=== PATIENT | female | born 1980 | race Caucasian/White ===

== ENCOUNTER → 2018-11-10 12:47 | Outpatient (CLI) | payer MEDICAID, SELFPAY ==
[2018-11-10 12:02] VITALS: BMI 32.5
[2018-11-10 13:31] LABS: Absolute Lymphocyte Count 1.55 X10^3/ul (0.83-4.51); Absolute Neutrophil Count 6.3 X10^3/uL (2.0-7.7); Basophil# 0.01 X10^3/uL; Basophil% 0.1 % (0-1); Eosinophil# 0.09 X10^3/uL; Eosinophils% 1.1 % (0-5); Hematocrit 37.5 % (37-47); Hemoglobin 12.7 g/dl (12.0-15.0); Lymphocyte # 1.55 X10^3/ul (4.0); Lymphocyte % 18.4 % (19-41); Mean Corp Hgb Conc 33.9 g/gl (32-36); Mean Corpuscular Hgb 30.5 pg (27.0-32.0); Mean Corpuscular Volume 89.9 fL (81-99); Mean Platelet Vol. 10.7 fl (6.2-12.0); Monocyte# 0.51 X10^3/uL; Monocyte% 6.1 % (0-10); Neutrophil # 6.25 X10^3/uL (2.7-7.7); Neutrophil % 74.2 % (47-70); Platelet Count 204 K/mm3 (150-450); RBC Distribution Width CV 12.6 % (11.6-14.6); RBC Distribution Width SD 40.5 fl (35.1-43.9); Red Blood Count 4.17 M/mm3 (4.2-5.4); White Blood Count 8.4 K/mm3 (4.4-11.0)
[2018-11-10 13:34] LABS: POSITIVE COUNT NO; POSITIVE DIFFERENTIAL NO; POSITIVE MORPHOLOGY NO
[2018-11-10 14:49] LABS: HIV - WCH Non-Reactive (Nonreactive); Rubella IgG 16.4 IU/mL
[2018-11-10 16:19] LABS: Chlamydia Trachomatis by PCR Negative (Negative); Neisserai gonorrhoeae by PCR Negative (Negative); Probe Check PASS; Sample Adequacy Control PASS; Specimen Processing Control PASS
[2018-11-11 11:01] LABS: HEPATITIS B SURFACE AG Negative (Negative)
[2018-11-13 03:31] LABS: Rapid Plasmin Reagin (RPR) NONREACTIVE (NONREACTIVE)
== END ==
PROVIDERS: Referring Provider Obstetrics & Gynecology; Visit Provider Obstetrics & Gynecology
DX: Z34.81 Encounter for supervision of other normal pregnancy, first trimester (principal)
CPT/HCPCS: 36415; 85025; 86592; 86703; 86762; 86850; 86900; 87086; 87088; 87340; 87491; 87591

== ENCOUNTER → 2018-12-30 11:28 | Outpatient (CLI) | payer MEDICAID, SELFPAY ==
[2018-12-09 11:48] VITALS: BMI 32.5
--- NOTE | 2018-12-30 11:32 | US_ITS ---
STUDY: SECOND AND THIRD TRIMESTER OBSTETRICAL ULTRASOUND REASON FOR EXAM: Female, 38 years old. Evaluate anatomy. LMP: Unknown. Estimated due date May 13, 2019 is provided. TECHNIQUE: Transabdominal TECHNICAL QUALITY: Adequate. PRIOR ULTRASOUND: None. FINDINGS: There is a single intrauterine fetus. The fetus is in an transverse lie with the head on the maternal left side. There is demonstrated cardiac activity with a heart rate of 149 bpm. There is a normal amniotic fluid volume. The largest amniotic fluid pocket measures 6.0 x 4.7 cm. A small septated fluid pocket is seen at the uterine fundus. The placenta is anterior in location and is not low lying. There are Grade 1 placental changes. The cervix measures 5.1 cm in length and is closed. The bilateral adnexal regions are normal. Incidental note of moderately defined, heterogeneous 6.3 x 6.5 x 4.0 cm soft tissue echogenicity consistent with a fibroid in the posterior lower uterine segment. BIOMETRY: BPD: 4.9 cm: 20 weeks, 6 days HC: 18.38 cm: 20 weeks, 6 days AC: 15.78 cm: 21 weeks, 0 days FL: 3.31 cm: 20 weeks, 6 days CI: 81% FL/BPD: 60% FL/AC: 21% HC/AC: 1.16 age by current US: 20 weeks, 6 days. CARLOS by current US: May 13, 2019. Estimated weight: 370 grams, +/- 84 grams, 35 %. Age by given CARLOS: 20 weeks, 6 days. Given CARLOS: May 13, 2019. ANATOMY: Gender: Female Cranium: Normal lateral ventricles. Normal choroid plexus. Normal cerebellum. Normal cisterna magna. Normal face, nose and lips. Chest: Normal 4-chamber heart. Abdomen/Pelvis: Normal diaphragm. Normal stomach. Normal abdominal wall. Normal cord insertion. Normal 3 vessel cord. Normal kidneys. Normal bladder. Spine: Normal cervical spine. Normal thoracic spine. Normal lumbar spine. Normal sacrum. Extremities: Normal bilateral upper extremities. Normal bilateral lower extremities. US/OB Anatomy Scan IMPRESSION: 1. Single living intrauterine fetus, presently in transverse lie with the head on the maternal left side, at estimated gestational age of 20 weeks, 6 days. Estimated date of delivery by today's study is May 13, 2019. 2. Unremarkable anatomic survey. 3. Estimated weight is 37 0 g. 4. The cervix is closed. Cervical length is 5.1 cm. 5. Visually normal amniotic fluid volume. Small septated fluid pocket is seen at the uterine fundus. 6. Grade 1 anterior placenta is not low-lying. 7. Incidental note of 6.5 cm myometrial fibroid in the posterior lower uterine segment Electronically Signed: Hamilton Nuno, at 20:07 EST , Service support ,
== END ==
PROVIDERS: Referring Provider Nurse Practitioner Women's Health; Visit Provider Nurse Practitioner Women's Health
DX: Z36.89 Encounter for other specified antenatal screening (principal)
CPT/HCPCS: 76805

== ENCOUNTER → 2019-02-24 | Outpatient (CLI) | payer MEDICAID, SELFPAY ==
[2019-02-24 11:48] VITALS: BMI 34.3
[2019-02-24 13:14] LABS: Absolute Lymphocyte Count 1.51 X10^3/ul (0.83-4.51); Absolute Neutrophil Count 7.5 X10^3/uL (2.0-7.7); Basophil# 0.01 X10^3/uL; Basophil% 0.1 % (0-1); Eosinophil# 0.11 X10^3/uL; Eosinophils% 1.1 % (0-5); Hematocrit 35.2 % (37-47); Hemoglobin 11.7 g/dl (12.0-15.0); Lymphocyte # 1.51 X10^3/ul (4.0); Lymphocyte % 15.4 % (19-41); Mean Corp Hgb Conc 33.2 g/gl (32-36); Mean Corpuscular Hgb 29.7 pg (27.0-32.0); Mean Corpuscular Volume 89.3 fL (81-99); Monocyte# 0.63 X10^3/uL; Monocyte% 6.4 % (0-10); Neutrophil # 7.46 X10^3/uL (2.7-7.7); Neutrophil % 76.3 % (47-70); Platelet Count 173 K/mm3 (150-450); RBC Distribution Width CV 13.5 % (11.6-14.6); RBC Distribution Width SD 44.1 fl (35.1-43.9); Red Blood Count 3.94 M/mm3 (4.2-5.4); White Blood Count 9.8 K/mm3 (4.4-11.0)
[2019-02-24 13:15] LABS: POSITIVE COUNT NO; POSITIVE DIFFERENTIAL NO; POSITIVE MORPHOLOGY NO
[2019-02-24 13:34] LABS: Glucose Challenge Gest 1H 50g 118 mg/dL (70-140)
== END | disposition home or self-care (01) ==
LOC: PAVLAB 12:17
PROVIDERS: Referring Provider Obstetrics & Gynecology; Visit Provider Obstetrics & Gynecology
DX: O09.93 Supervision of high risk pregnancy, unspecified, third trimester (principal); Z3A.28 28 weeks gestation of pregnancy
CPT/HCPCS: 36415; 82950; 85025

== ENCOUNTER → 2019-04-16 | Outpatient (CLI) | payer MEDICAID, SELFPAY ==
[2019-04-09 15:20] VITALS: BMI 36.9
[2019-04-16 12:03] VITALS: BMI 36.9
--- NOTE | 2019-04-16 12:22 | US_ITS ---
STUDY: SECOND AND THIRD TRIMESTER OBSTETRICAL ULTRASOUND - LIMITED REASON FOR EXAM: Female, 38 years old. Routine survey. LMP: August 06, 2018. PRIOR ULTRASOUND: Comparison is made with prior study dated December 30, 2018. TECHNIQUE: Transabdominal TECHNICAL QUALITY: Adequate. FINDINGS: There is a single intrauterine fetus. The fetus is in a breech presentation. There is demonstrated cardiac activity with a heart rate of 138 bpm. There is a normal amniotic fluid volume. The largest amniotic fluid pocket measures 4.3 cm. The amniotic fluid index (DAISHA) is 4.3 cm. The placenta is anterior in location and is not low lying. There are Grade 2 placental changes. The cervix measures 3.6 cm in length. BIOMETRY: BPD: 9.32 cm: 38 weeks, 0 days HC: 33.79 cm: 38 weeks, 6 days AC: 31.68 cm: 35 weeks, 5 days FL: 6.68 cm: 34 weeks, 3 days Age by LMP: 36 weeks, 1 days. CARLOS by LMP: May 13, 2019. age by prior US: 36 weeks, 1 days. CARLOS by prior US: May 13, 2019. age by current US: 36 weeks, 6 days. CARLOS by current US: May 08, 2019. Estimated weight: 2784 grams, +/- 406 grams, 43 percentile. Gender: Female The previously seen uterine fibroid is not visualized at this time. Once again, a septation measuring 6 mm in thickness is seen in the region of the uterine fundus surrounded by amniotic fluid. US/OB Limited With Biometrics IMPRESSION: Single live uterine gestation with a mean gestational age of 36 weeks and 1 day. The measurements obtained today following within the normal expected range. Electronically Signed: Lloyd Rose, at 10:12 EDT , Service support ,
== END | disposition home or self-care (01) ==
PROVIDERS: Referring Provider Nurse Practitioner Women's Health; Visit Provider Nurse Practitioner Women's Health
DX: O09.529 Supervision of elderly multigravida, unspecified trimester (principal); O09.90 Supervision of high risk pregnancy, unspecified, unspecified trimester; Z3A.00 Weeks of gestation of pregnancy not specified
CPT/HCPCS: 76816; 87081

== ENCOUNTER 2019-04-19 14:25 | Outpatient (CLI) | payer MEDICAID, SELFPAY ==
[2019-04-16 12:03] VITALS: BMI 36.9
[2019-04-19 14:35] VITALS: BMI 37.2
--- NOTE | 2019-04-19 14:40 | US_ITS ---
STUDY: OBSTETRICAL ULTRASOUND - BIOPHYSICAL PROFILE REASON FOR EXAM: Female, 38 years old. Evaluate well-being LMP: 08/06/2018 PRIOR ULTRASOUND: 04/16/2019 TECHNIQUE: Transabdominal TECHNICAL QUALITY: Adequate. FINDINGS: There is a single intrauterine fetus. The fetus is in breech to right transverse variable position. There is demonstrated cardiac activity with a heart rate of 153 bpm. There is a normal amniotic fluid volume. The largest amniotic fluid pocket measures 8.6 x 6.1 cm. The amniotic fluid index (DAISHA) is 14.58 cm. The placenta is anterior in location and is not low lying. There are Grade 2 placental changes. Age by LMP: 36 weeks, 4 days. CARLOS by LMP: 05/13/2019. BIOPHYSICAL PROFILE: Breathing Movements (FBM): 0 Gross Body Movements (GBM): 2 Tone (FT): 2 Amniotic Fluid Volume (AFV): 2 TOTAL SCORE: 6 / 8 US/Biophysical Profile IMPRESSION: A biophysical profile score of 6/8 was obtained. breathing movements were not demonstrated during the study. There is again noted a thick-walled septation measuring 4 mm surrounded by amniotic fluid of the uterine fundus. This was previously noted. Electronically Signed: Thanh Patricio MD at 16:33 EDT , Service support ,
--- NOTE | 2019-04-20 01:30 | OB.TRI.PN ---
Progress Notes Date of Service: 04/19/19 Progress Note: Patient evaluated with extended monitoring and repeat DAISHA due to abnormal ultrasound report from Friday showing oligohydramnios. Fluid level normal at 15 cm and upon discussing with pullman car repairer there was a typo on the previous report and the DAISHA was actually normal on Friday also. BPP was done today due to the previous diagnosis and the result was 6 out of 8 and with a reactive NST with extended monitoring for a total of 8 out of 10. heart tone: 140 moderate variability reactive no decelerations getaway 1 tracing [place]: No regular contractions Assessment and plan oligohydramnios, abnormal testing?radiology air, patient has normal fluid now. Recommend repeat NST in 24 hours secondary to 8 out of 10 BPP reviewed brett boudreaux
== END 2019-04-19 16:15 | disposition home or self-care (01) ==
LOC: WPOUT 14:34 → WP 14:35
PROVIDERS: Referring Provider Obstetrics & Gynecology; Visit Provider Obstetrics & Gynecology
DX: O28.3 Abnormal ultrasonic finding on antenatal screening of mother (principal); Z3A.00 Weeks of gestation of pregnancy not specified
CPT/HCPCS: 59025; 59050; 76818; 99218; G0378

== ENCOUNTER 2019-05-10 10:05 | Inpatient (IN) | payer MEDICAID, SELFPAY ==
[2019-04-29 13:41] VITALS: BMI 37.2
[2019-05-05 13:34] VITALS: BMI 37.2
[2019-05-10] VITALS (15 sets, daily range): BP systolic 118–139; BP diastolic 63–73; PULSE 66–85; RESP 16–18; TEMP 36.4–36.8; O2SAT 95–100; BMI 38.0
[2019-05-10] MEDS: Lactated Ringers 1,000 ML 999 ML IV (10:30)
[2019-05-10 11:26] LABS: Absolute Lymphocyte Count 1.72 X10^3/ul (0.83-4.51); Eosinophil# 0.11 X10^3/uL; Eosinophils% 1.3 % (0-5); Hematocrit 34.9 % (37-47); Hemoglobin 11.6 g/dl (12.0-15.0); Lymphocyte # 1.72 X10^3/ul (4.0); Mean Corp Hgb Conc 33.2 g/gl (32-36); Mean Corpuscular Hgb 29.7 pg (27.0-32.0); Mean Corpuscular Volume 89.3 fL (81-99); Mean Platelet Vol. 11.5 fl (6.2-12.0); Monocyte% 8.2 % (0-10); Neutrophil % 69.9 % (47-70); Platelet Count 139 K/mm3 (150-450); RBC Distribution Width SD 44.2 fl (35.1-43.9); Red Blood Count 3.91 M/mm3 (4.2-5.4); White Blood Count 8.6 K/mm3 (4.4-11.0)
[2019-05-10 11:31] LABS: POSITIVE COUNT NO; POSITIVE DIFFERENTIAL NO; POSITIVE MORPHOLOGY NO
[2019-05-10] MEDS: Lactated Ringers 1,000 ML 150 ML IV (11:31)
[2019-05-10] MEDS: Sodium Citrate/Citric Acid 30 ML UDC PO (12:55)
[2019-05-10] MEDS: Cefazolin 2 GM in 0.9% Normal Saline 100 ML IV (13:02)
--- NOTE | 2019-05-10 13:07 | HP.PCM_ITS ---
- Problem List (1) AMA (advanced maternal age) multigravida 35+ Status: Acute Qualifiers: Comment: genetic counseling, NIPT- low risk- gender revea. growth us at 36 weeks. (2) Breech presentation Status: Acute (3) History of delivery Status: Acute Comment: plan , 3 previous (4) History of premature rupture of membranes (PPROM) Status: Acute Comment: declined progesterone injections (5) Status: Acute Qualifiers: Comment: carrier screening declined. nipt nl girl (6) Supervision of high risk , antepartum Status: Acute Comment: PRR CARLOS 05/13/19 girl Tata Gulshan Canela Austin, Nathan Teodoro (7) Uterine fibroid complicating care, baby not yet delivered Status: Acute Comment: posterior, lower segment. 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 Required: No Is patient in pain?: No Allergies No Known Allergies Allergy (Verified 05/05/19 13:11) Medications ranitidine 150 mg tablet 150 mg PO DAILY 03/09/19 [History Confirmed 05/05/19] Vits [Prenatabs FA] 1 tab PO DAILY 04/19/19 [History Confirmed 05/05/19] Last Menstral Period: 08/05/18 Zika: Zika virus screening: Negative : No PFSH PFSH Surgical History S/P (Resolved) S/P dilation and curettage (Resolved) S/P tonsillectomy and adenoidectomy (Resolved) Social History (Updated 05/05/19 @ 13:34 by Deisy Dior MD) Smoking Status: Former smoker alcohol intake: never substance use type: does not use caffeine: Yes what type of physical activity do you participate in: none seatbelt use: always do you feel safe at home: Yes additional social history: - [place]- 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 Date Name GA/Weeks Outcome Route Bth Weight Gen Labor Lgth Anesthesia Del Locatn Provider FOB 08/30/01 Annette 40 live - full term 5lbs 5 oz Female [facility] Dr. Rajan Valerio 09/26/03 Gulshan 40 live - full term NS VD Male [facility] [place] 05/12/05 Ben 40 live - full term NS VD Male [facility] Ag[place] 08/25/09 Federico 32 live - C-se ction Male [facility] ([facility]) [place] Delivery Date: 08/30/01 On 11/10/18 @ 11:58 Kaitlyn Chang No issues during or delivery. Delivery Date: 09/26/03 On 11/10/18 @ 12:00 Kaitlyn Chang No issues during or delivery. Delivery Date: 05/12/05 On 11/10/18 @ 12:01 Kaitlyn Chang No issues during or delivery. Delivery Date: 08/25/09 On 11/10/18 @ 12:14 Deisy Dior 2 months early-ROM, cs for NRFHTs HPI 40 WEEK OB: Details: MAYA RAMIREZ is a 38 year old who presents for routine OB visit. planning RLTCS next week OB Visit CARLOS Calculator Estimated Delivery Date Method Current WG Current Estimate 05/13/19 Ultrasound #1 38w 6d Expected Delivery Route/Plan up to date education given Specific Issue/Plans flu vaccine: declined tdap vaccine: declined rhogam:NA LARC form signed: declines labor support person: [place] pain management: epidural cut cord/dad catch: yes : yes PP control planned: vasectomy discussed possible routes of delivery and associated risks: [] special requests: [] Initial Weight: 180 lb Date EGA Weight BP Urine Prot Glucose FHR FuHt Pres Mov CTX Dilation Effaced St Visit Note 12/09/18 17w 6d 192 lb 6 oz (+12 lb 6 oz) 130/68 Negative Negative 156 Doing well. Nausea improved. No VB, LOF. 01/08/19 22w 1d 194 lb (+14 lb) 120/86 Negative Negative 150 no vb lof good fm no regular ctx reviewed us results 02/03/19 25w 6d 197 lb 6 oz (+17 lb 6 oz) 118/78 Negative Negative 150 26 no vb lof good fm no regular ctx 02/24/19 28w 6d 202 lb (+22 lb) 120/82 Negative Negative 150 29 Active absent cbc gct no vb lof good fm no regular ctx declines tdap 03/09/19 30w 5d 205 lb (+25 lb) 122/82 Negative Negative 140 33 Active no vb lof good fm no regular ctx 03/22/19 32w 4d 205 lb (+25 lb) 112/62 130 34 Active no vb lof good fm n oregualr ct consent signed 04/09/19 35w 1d 208 lb 6 oz (+28 lb 6 oz) 110/76 Trace Negative 146 36 Active occasional No VB, LOF. No reg CTX 04/16/19 36w 1d 208 lb (+28 lb) 124/80 140 38 Active 0 no vb co increased clear fluid, negative ROM. good fm irregular ctx. 04/20/19 36w 5d 211 lb (+31 lb) 126/86 140 Active no vb lof good fm no regualr ctx. no vb lof good fm no regular ctx. 04/29/19 38w 0d 214 lb (+34 lb) 120/72 Negative Negative 140 39 Active 0 n ovb lof good fm no regular ctx no vb lof good fm n oregular ctx- breech, discussed and offered version, plan 05/05/19 38w 6d 213 lb (+33 lb) 126/80 Negative Negative 140 40 Breech Active absent no vb lof good fm n roegualr ctx Visit Notes Visit Date: 05/05/19 ??no vb lof good fm n roegualr ctx ??Deisy Dior MD on 05/05/19 Visit Date: 04/29/19 ??no vb lof good fm n oregular ctx- breech, discussed and offered version, plan ??Deisy Dior MD on 04/29/19 ??n ovb lof good fm no regular ctx ??Deisy Dior MD on 04/29/19 Visit Date: 04/20/19 ??no vb lof good fm no regular ctx. ??Deisy Dior MD on 04/20/19 ??no vb lof good fm no regualr ctx. ??Deisy Dior MD on 04/20/19 Visit Date: 04/16/19 ??no vb co increased clear fluid, negative ROM. good fm irregular ctx. ??Deisy Dior MD on 04/16/19 Visit Date: 04/09/19 ??No VB, LOF. No reg CTX ??ZOFIA HawkinsC on 04/09/19 Visit Date: 03/22/19 ??no vb lof good fm n oregualr ct consent signed ??Deisy Dior MD on 03/22/19 Visit Date: 03/09/19 ??no vb lof good fm no regular ctx ??Deisy Dior MD on 03/09/19 Visit Date: 02/24/19 ??cbc gct no vb lof good fm no regular ctx declines tdap ??Deisy Dior MD on 02/24/19 Visit Date: 02/03/19 ??no vb lof good fm no regular ctx ??Deisy Dior MD on 02/06/19 Visit Date: 01/08/19 ??no vb lof good fm no regular ctx reviewed us results ??Deisy Dior MD on 01/08/19 Visit Date: 12/09/18 ??Doing well. Nausea improved. No VB, LOF. ??JUAN ANTONIO Hawkins on 12/09/18 ACOG First Trimester First Trimester: Desire for , Alcohol, Tobacco Cessation, Illicit/Recreational Drug/Substance Use, Intimate Partner Violence, Barriers to care, Unstable Housing, Communication Barriers, Environmental/Work Hazards, Anticipated Course of Care, Toxoplasmosis Precations, Use of Any medications, Sexual activity, Exercise, Dental Care, Sauna/Hot tub use, Seat Belt use, Childbirth classes/Hospital facilities, , Travel, Indications for US and Screening for Aneuploidy Second Trimester Second Trimester: Signs and Symptoms of Labor, Selecting a care provider, Reproductive Life Planning, Care Planning, Tobacco Cessation, Depression/Anxiety and Intimate Partner Violence Third Trimester Third Trimester: Pain Management Plans, Labor support person(s), Immediate Larc, Movement Monitoring and Feeding Yes ; discussed Trial of Labor after Counseling or discussed Circumcision preference Diagnostics Diagnostics Labs Hct 35.2 % (37-47) L 02/24/19 Hgb 11.7 g/dl (12.0-15.0) L 02/24/19 Obstetrics Ultrasound 04/16/19 Glucose 1 Hr 50 gm 118 mg/dL (70-140) 02/24/19 Details: HIV: Urine Culture: Sequential Screen: NIPT Screen: ROS Const Reports system reviewed and no additional complaints, except as docu Card Reports system reviewed and no additional complaints, except as docu Resp Reports system reviewed and no additional complaints, except as docu GI Reports system reviewed and no additional complaints, except as docu, Reports nausea Reports system reviewed and no additional complaints, except as docu Musc Reports system reviewed and no additional complaints, except as docu Exam Const General: cooperative, healthy appearing, comfortable, anxious HENMT Head: normal to inspection Nose: external nose normal Face and sinus: normal facial exam Neck Neck: normal visual inspection, full ROM, no lymphadenopathy Thyroid: thyroid normal Chest Chest palpation & inspection: normal inspection of the chest Resp Effort & Inspection: normal respiratory effort GI Inspection: normal to inspection Palpation: soft, other (gravid uterus) Other: vertex and appropriate size for gestational age Other: Cervical Exam: Extrem General: pedal edema Results [id number] Office Urine Glucose Negative Last Edit by Yaneth Richardson on 05/05/19 13:1 3 Office Urine Protein Negative Last Edit by Yaneth Richardson on 05/05/19 13:1 3 Assessment & Plan Problems 1. Breech presentation O32.1XX0 2. History of premature rupture of membranes (PPROM) Z87.59 3. History of delivery Z98.891 4. Supervision of high risk , antepartum O09.90 5. 38 weeks gestation of Z3A.38 6. Uterine fibroid complicating care, baby not yet delivered O34.10; D25.9 7. Multigravida of advanced maternal age in first trimester O09.521 Plan movement and labor precautions reviewed. ACOG trimester education reviewed and updated. see problem list details for updated plan management information and see below for orders placed at this visit. GA appropriate handout given. plan RLTCS Orders Orders: POC Urinalysis 2 Dip (Clinic) Today Coding Level of Care Code OB Routine Diagnoses Breech presentation O32.1XX0 History of premature rupture of membranes (PPROM) Z87.59 History of delivery Z98.891 Supervision of high risk , antepartum O09.90 38 weeks gestation of Z3A.38 ??Weeks of gestation: 38 weeks Uterine fibroid complicating care, baby not yet delivered O34.10; D25.9 Multigravida of advanced maternal age in first trimester O09.521 ??Trimester: first trimester UPDATE- I have seen the patient and performed any clinically relevant updates to the history and physical exam. Deisy Dior MD
--- NOTE | 2019-05-10 13:08 | OP.PCM_ITS ---
Problem List (1) AMA (advanced maternal age) multigravida 35+ Status: Acute Qualifiers: Comment: genetic counseling, NIPT- low risk- gender revea. growth us at 36 weeks. (2) Breech presentation Status: Acute (3) History of delivery Status: Acute Comment: plan , 3 previous (4) History of premature rupture of membranes (PPROM) Status: Acute Comment: declined progesterone injections (5) Status: Acute Qualifiers: Comment: carrier screening declined. nipt nl girl (6) Supervision of high risk , antepartum Status: Acute Comment: PRR CARLOS 05/13/19 girl Tata Gulshan Canela [place], Federico Teodoro (7) Uterine fibroid complicating care, baby not yet delivered Status: Acute Comment: posterior, lower segment. 6cm Delivery Classification: Scheduled Final CARLOS: 05/13/19 Gestational age: 39 Weeks and 4 Days Indications for : Breech Description of Procedure: The patient is a 38yo @ 39w4d presented for repeat . Spinal anesthesia was placed without difficulty. Lopez catheter was placed. The patient was placed in the dorsal supine position with leftward tilt. Patient was prepped and draped in the normal sterile fashion. Pfannenstiel skin incision was made with the scalpel and carried through to the underlying layer of fascia with the scalpel. Fascia was nicked in the midline and the incision extended laterally. The rectus bellies were dissected off superiorly and inferiorly with out complication both sharply and bluntly. The peritoneum was entered digitally. The incision was stretched and a low transverse uterine incision was made with the scalpel. The infant's head was delivered atraumatically followed by the anterior and posterior shoulders without complication the rest of the delivered. The cord was clamped and cut and the was handed off to awaiting nurse. The placenta was delivered spontaneously immediately following and was noted to be intact and have a three- vessel cord. The uterus was exteriorized cleared of all clots and debris, and the incision was closed in a double layer closure using #1 Monocryl. The uterus was returned to the maternal abdomen and gutters were cleared of all clots and debris. The ovaries and fallopian tubes were noted to be within normal limits. The peritoneum was closed with 3-0 Monocryl in a running fashion. Fascia was closed with 0 PDS in a running fashion. Subcutaneous tissue was copiously irrigated and the skin was closed with 3-0 Monocryl in a subcuticular fashion. Steri-Strips and Mepilex dressing were applied without complication. Patient was taken to recovery in stable condition. Amniotic Membrane Rupture Type: Artificial Amniotic Fluid Description: Clear Placenta Disposition: [facility] Specimen(s) sent to pathology: none Drain: Lopez to straight drain Fluids Replaced: crystalloid Cord Entanglement: None Cord Vessel Description: 3 Vessels Esitmated Blood Loss (ml): 900 Gender: Female (1 minute): 9 (5 minute): 9 Delayed cord clamping: Yes Pre-op Antibiotic Given: Ancef 2 grams IV x1 Complications: None - Admit VTE Documentation VTE Present on Admission: No
[2019-05-10] MEDS: Oxytocin 30 units/NS 500 ml 30 UNITS/500 ML IV.SOLN 167 UNITS IV (13:29)
[2019-05-10] MEDS: Ketorolac 30 MG/ML Syringe IV ×2 (13:59→20:04)
[2019-05-10] MEDS: Acetaminophen 500 MG Tablet 1000 MG PO (16:16)
[2019-05-10] MEDS: Lactated Ringers 1,000 ML 100 ML IV (16:17)
[2019-05-10] MEDS: Ondansetron 4 MG/2 ML Vial IV (16:51)
[2019-05-11] VITALS (13 sets, daily range): BP systolic 100–119; BP diastolic 61–72; PULSE 82–107; RESP 16–20; TEMP 36.2–36.9; O2SAT 96–100
[2019-05-11] MEDS: Ketorolac 30 MG/ML Syringe IV ×3 (02:03→14:10)
[2019-05-11] MEDS: Lactated Ringers 1,000 ML 100 ML IV (02:10)
[2019-05-11 06:15] LABS: Hematocrit 31.4 % (37-47); Hemoglobin 10.6 g/dl (12.0-15.0); Mean Corp Hgb Conc 33.8 g/gl (32-36); Mean Corpuscular Hgb 30.3 pg (27.0-32.0); Mean Corpuscular Volume 89.7 fL (81-99); Mean Platelet Vol. 11.5 fl (6.2-12.0); Platelet Count 128 K/mm3 (150-450); RBC Distribution Width SD 44.5 fl (35.1-43.9); White Blood Count 7.6 K/mm3 (4.4-11.0)
[2019-05-11 06:16] LABS: Scan Indicated on CBC? Y/N NO
--- NOTE | 2019-05-11 07:46 | PCM.PN.OB ---
Subjective: doing well no complaints pain controlled no CP SOB N V, has been up tobedside, tolerating po lochia moderate, going well - Physical Exam General: Alert, Oriented x3 Abdomen: Soft, Non-Distended, - - Dressing intact without new drainage. FF below U Vital Signs Temp Pulse Resp BP Pulse Ox 97.2 F L 82 18 100/65 98 05/11/19 05:55 05/11/19 05:55 05/11/19 05:55 05/11/19 05:55 05/11/19 05:55 Oxygen Delivery Method Room Air Weight: 214 lb 15.211 oz Body Mass Index (BMI) 38.0 Intake and Output for Last 24 Hours 05/09/19 05/10/19 05/11/19 23:59 23:59 23:59 Intake Total 2400 / 2400 1928 / 1928 Output Total 500 / 500 1250 / 1250 Balance 1900 / 1900 678 / 678 Laboratory Tests Past 24 Hrs 05/10/19 05/10/19 05/11/19 11:05 11:05 05:45 WBC 8.6 7.6 RBC 3.91 L 3.50 L Hgb 11.6 L 10.6 L Hct 34.9 L 31.4 L MCV 89.3 89.7 MCH 29.7 30.3 MCHC 33.2 33.8 RDW 14.0 14.0 RDW Differential 44.2 H 44.5 H Plt Count 139 L 128 L MPV 11.5 11.5 Immature Gran % (Auto) 0.600 Neut % (Auto) 69.9 Lymph % (Auto) 20.0 [place] % (Auto) 8.2 Eos % (Auto) 1.3 Baso % (Auto) 0.0 Absolute Neuts (auto) 6.0 Absolute Lymphs (auto) 1.72 Total Counted Not Reportable Blood Type O POSITIVE Antibody Screen NEGATIVE Medical Necessity - Tobacco Use Smoking Status: Former smoker Assessment/Plan All Active Problems (Last Reviewed 05/05/19 @ 13:12 by Yaneth Richardson) Breech presentation (Acute) Uterine fibroid complicating care, baby not yet delivered (Acute) History of premature rupture of membranes (PPROM) (Acute) History of delivery (Acute) AMA (advanced maternal age) multigravida 35+ (Acute) Supervision of high risk , antepartum (Acute) (Acute) s/p LTCS PPD # 1 1. routine post care 2. breast feeding- support given 3. rh positive 4. rubella immune
[2019-05-11] MEDS: 0.9% Saline Lock 10 ML Syringe IV ×2 (08:22→14:09)
[2019-05-12 01:20] VITALS: BP 133/77; PULSE 111; RESP 16; TEMP 37.2
[2019-05-12] MEDS: Naproxen 250 MG Tablet PO ×3 (01:24→17:34)
--- NOTE | 2019-05-12 07:44 | PCM.PN.OB ---
Subjective: doing well no complaints pain controlled no CP SOB N V ambulating well tolerating po lochia moderate, going well - Physical Exam General: Alert, Oriented x3 Abdomen: Soft, Non-Distended, - - Dressing intact without new drainage. FF below U Vital Signs Temp Pulse Resp BP Pulse Ox 98.9 F 111 H 16 133/77 H 97 05/12/19 01:20 05/12/19 01:20 05/12/19 01:20 05/12/19 01:20 05/11/19 19:49 Oxygen Delivery Method Room Air Weight: 214 lb 15.211 oz Body Mass Index (BMI) 38.0 Intake and Output for Last 24 Hours 05/10/19 05/11/19 05/12/19 23:59 23:59 23:59 Intake Total 2400 / 2400 3970 / 3970 Output Total 500 / 500 3800 / 3800 800 / 800 Balance 1900 / 1900 170 / 170 -800 / -800 Medical Necessity - Tobacco Use Smoking Status: Former smoker Assessment/Plan All Active Problems (Last Reviewed 05/05/19 @ 13:12 by Yaneth Richardson) Breech presentation (Acute) Uterine fibroid complicating care, baby not yet delivered (Acute) History of premature rupture of membranes (PPROM) (Acute) History of delivery (Acute) AMA (advanced maternal age) multigravida 35+ (Acute) Supervision of high risk , antepartum (Acute) (Acute) s/p LTCS PPD # 2 1. routine post care 2. breast feeding- support given 3. rh positive 4. rubella immune 5. May consider discharge this pm
--- NOTE | 2019-05-12 07:46 | DCINST_ITS ---
Additional Instructions: If you experience any of the following, contact your healthcare provider. * Bleeding that soaks a pad every hour for 2 hours * Fever 100.4 or higher * Unrelieved incision or abdominal pain * Swelling, redness, discharge or bleeding from your incision or episiotomy site * Your incision begins to separate * Problems urinating (including inability to urinate or burning while urinating). * Visual changes * Severe headache * Flu-like symptoms * Pain or redness in one of both of your breasts * Pain, warmth, tenderness or swelling in your legs, especially the calf area * Frequent nausea and vomiting * Symptoms of depression or anxiety If you experience any of the following, call 911 or go to the nearest Emergency Room. * Chest pain * Problems breathing * Seizure activity * Partial or complete paralysis of a body part, slurred speech, weakness or drooping of the face, or a sudden inability to walk or hold your balance Allergies/Adverse Reactions: Allergies Iodinated Contrast- Oral and IV Dye [CONTRASTS] Allergy (Verified 05/10/19 10:28) Anaphylaxis Medications to take at Discharge Vits [Prenatabs FA] 1 tab PO DAILY 04/19/19 Follow-Up: Call to make an appointment with your doctor for an incision check in 1-2 weeks. You will also need a 6 week post- follow up appointment. Test results from this visit will be discussed in further detail at your follow- up appointment, if applicable. Primary Care Physician: Bon Carter,Out of [Primary Care Provider] -
--- NOTE | 2019-05-12 07:46 | PCM.DCCSEC ---
Additional Instructions: If you experience any of the following, contact your healthcare provider. Bleeding that soaks a pad every hour for 2 hours Fever 100.4 or higher Unrelieved incision or abdominal pain Swelling, redness, discharge or bleeding from your incision or episiotomy site Your incision begins to separate Problems urinating (including inability to urinate or burning while urinating). Visual changes Severe headache Flu-like symptoms Pain or redness in one of both of your breasts Pain, warmth, tenderness or swelling in your legs, especially the calf area Frequent nausea and vomiting Symptoms of depression or anxiety If you experience any of the following, call 911 or go to the nearest Emergency Room. Chest pain Problems breathing Seizure activity Partial or complete paralysis of a body part, slurred speech, weakness or drooping of the face, or a sudden inability to walk or hold your balance Allergies/Adverse Reactions: Allergies Iodinated Contrast- Oral and IV Dye [CONTRASTS] Allergy (Verified 05/10/19 10:28) Anaphylaxis Medications to take at Discharge Vits [Prenatabs FA] 1 tab PO DAILY 04/19/19 Follow-Up: Call to make an appointment with your doctor for an incision check in 1-2 weeks. You will also need a 6 week post- follow up appointment. Test results from this visit will be discussed in further detail at your follow-up appointment, if applicable. Primary Care Physician: Bon Carter,Out of [Primary Care Provider] -
[2019-05-12 09:25] VITALS: BP 110/61; PULSE 98; RESP 16; TEMP 36.4; O2SAT 97
[2019-05-12] MEDS: Acetaminophen 500 MG Tablet 1000 MG PO ×2 (13:30→21:45)
[2019-05-12 15:00] VITALS: BP 110/65; PULSE 85; TEMP 36.8; O2SAT 97
[2019-05-12] MEDS: Senna/Docusate Sodium 1 Tablet PO (15:08)
[2019-05-12 20:25] VITALS: BP 125/74; PULSE 83; RESP 18; TEMP 36; O2SAT 97
[2019-05-13 02:12] VITALS: BP 117/71; PULSE 74; RESP 16; TEMP 36; O2SAT 97
[2019-05-13] MEDS: Naproxen 250 MG Tablet PO ×2 (05:43→14:47)
--- NOTE | 2019-05-13 07:17 | PCM.PN.OB ---
Subjective: doing well no complaints - Physical Exam General: Alert, Oriented x3 Vital Signs Temp Pulse Resp BP Pulse Ox 96.8 F L 74 16 117/71 97 05/13/19 02:12 05/13/19 02:12 05/13/19 02:12 05/13/19 02:12 05/13/19 02:12 Oxygen Delivery Method Room Air Weight: 214 lb 15.211 oz Body Mass Index (BMI) 38.0 Intake and Output for Last 24 Hours 05/11/19 05/12/19 05/13/19 23:59 23:59 23:59 Intake Total 3970 / 3970 Output Total 3800 / 3800 800 / 800 Balance 170 / 170 -800 / -800 Medical Necessity - Tobacco Use Smoking Status: Former smoker Assessment/Plan All Active Problems (Last Reviewed 05/05/19 @ 13:12 by Yaneth Richardson) Breech presentation (Acute) Uterine fibroid complicating care, baby not yet delivered (Acute) History of premature rupture of membranes (PPROM) (Acute) History of delivery (Acute) AMA (advanced maternal age) multigravida 35+ (Acute) Supervision of high risk , antepartum (Acute) (Acute) s/p LTCS PPD # 3 1. routine post care 2. breast feeding- support given 3. rh positive 4. rubella immune
[2019-05-13] MEDS: Acetaminophen 500 MG Tablet 1000 MG PO (07:25)
[2019-05-13 07:45] VITALS: BP 125/65; PULSE 89; RESP 16; TEMP 36.6; O2SAT 98
[2019-05-13] MEDS: Senna/Docusate Sodium 1 Tablet PO (15:01)
[2019-05-13 15:03] VITALS: BP 134/75; PULSE 84; RESP 16; TEMP 36.8
--- NOTE | 2019-05-17 18:23 | NURSING ---
Baby eating well and voiding and stooling . Mother states nipples little sore, offered appt if needed. Mother states a little swelling but otherwise doing well. States Jael chan was her favorite nurse.
--- NOTE | 2019-05-19 04:44 | PCM.DC.SUM ---
Discharge Date and Diagnosis Date of Admission: 05/10/19 Date of Discharge: 05/13/19 Hospital Course and Treatment Consultations 05/10/19 10:21 Consult: Anesthesia Routine Comment: Reason For Exam: LABOR Operations: - - rltcs Summary of Care Provided: The patient is a 38 year old F for RLTCS. patient underwent a section and had a routine recovery with a return of bowel and bladder function, was ambulating, voiding, and tolerating po, and was stable for discharge to home on POD 3. - Physical Exam Vital Signs Temp Pulse Resp BP Pulse Ox 98.3 F 84 16 134/75 H 98 05/13/19 15:03 05/13/19 15:03 05/13/19 15:03 05/13/19 15:03 05/13/19 07:45 Oxygen Delivery Method Room Air Weight: 214 lb 15.211 oz Body Mass Index (BMI) 38.0 Home Medications: Medications to take at Discharge Vits [Prenatabs FA] 1 tab PO DAILY 04/19/19 Naproxen [Naprosyn] 500 mg PO BID PRN PRN #60 tab 05/12/19 Oxycodone HCl/Acetaminophen [Percocet 5/325] 1 - 2 tab PO Q4H PRN PRN 7 Days #28 tab 05/12/19 Following Prescrptions Were Given to Patient: Naproxen [Naprosyn] 500 mg PO BID PRN PRN #60 tab PRN Reason: Pain Transmission Status: Received by [facility] [employer] [facility] Oxycodone HCl/Acetaminophen [Percocet 5/325] 1 - 2 tab PO Q4H PRN PRN 7 Days #28 tab PRN Reason: Pain Transmission Status: Received by [facility] Primary Care Physician: [facility] Doctor,Out of [Primary Care Provider] - Medical Necessity - Tobacco Use Smoking Status: Former smoker Meaningful Use Info Meaningful Use Diagnoses (Choose all that apply): None applicable
== END 2019-05-13 18:00 | disposition home or self-care (01) | DRG 540 ==
PROVIDERS: Admitting Provider Obstetrics & Gynecology; Referring Provider Obstetrics & Gynecology; Visit Provider Obstetrics & Gynecology
PROC: 10D00Z1 Extraction of Products of Conception, Low, Open Approach (ICD-10-PCS; CPT 59514; principal; 2019-05-10 11:45)
DX: O32.1XX0 Maternal care for breech presentation, not applicable or unspecified (principal); Z3A.39 39 weeks gestation of pregnancy; Z37.0 Single live birth; O34.211 Maternal care for low transverse scar from previous cesarean delivery; O34.13 Maternal care for benign tumor of corpus uteri, third trimester; Z87.891 Personal history of nicotine dependence
CPT/HCPCS: 85025; 85027; 86850; 86900; 99218; J7120; A4216; G0378; J2405